=== PATIENT | female | born 1975 | race American Indian/Alaskan Native ===

== ENCOUNTER 2017-03-04 02:38 | Emergency (ER) | payer OTHER ==
[2017-03-04 03:21] LABS: Basophils % (Auto) 1.1 % (0.0-1.8); Eosinophils % (Auto) 0.9 % (0.0-4.3); Hematocrit 39.8 % (30.3-42.9); Hemoglobin 13.3 gm/dl (10.1-14.3); Mean Corpuscular HGB Conc 34 % (30-34); Mean Corpuscular Hemoglobin 34 pg (28-32); Mean Corpuscular Volume 100 fl (79-97); Platelet Count 288 K/mm3 (140-440); Red Blood Count 3.97 M/mm3 (3.65-5.03); Red Cell Distribution Width 18.7 % (13.2-15.2); White Blood Count 5.8 K/mm3 (4.5-11.0)
[2017-03-04 03:36] LABS: Anion Gap 20 mmol/L; Blood Urea Nitrogen 7 mg/dL (7-17); Calcium 8.8 mg/dL (8.4-10.2); Carbon Dioxide 23 mmol/L (22-30); Chloride 98.3 mmol/L (98-107); Glucose 115 mg/dL (65-100); Sodium 138 mmol/L (137-145)
[2017-03-04 04:25] LABS: Bacteria,Urine 3+ /HPF (Negative); Bilirubin,Urine NEG (Negative); Blood,Urine LG (Negative); Ketones,Urine TR mg/dL (Negative); Leukocyte Esterase,Urine NEG (Negative); Mucus,Urine FEW /HPF; Nitrite,Urine NEG (Negative)
[2017-03-04 04:26] LABS: RBC,Urine > 182.0 /HPF (0.0-6.0); WBC,Urine > 182.0 /HPF (0.0-6.0)
[2017-03-04] MEDS ORDERED: TYLENOL PO ONE (09:03)
[2017-03-04] MEDS ORDERED: TYLENOL ONE (11:48)
[2017-03-04] MEDS ORDERED: K-DUR PO ONE (13:01)
[2017-03-04] MEDS ORDERED: ROCEPHIN/NS 1 GM/50 ML 1 GM/50 ML BAG IV ONE (13:01)
--- NOTE | 2017-03-04 13:09 | Emergency Department Report ---
HPI - General Chief Complaint: Headache Time Seen by Provider: 03/04/17 13:00 - HPI HPI: This is a 41 year-old female presents to the emergency department, driven in by her , with complaint of a generalized headache that been going on intermittently over the past 2-3 days. Initially the pain went away on its own but it came back today more intense. She complains of some mild lightheadedness but otherwise denies any vision change, slurred speech , problems with ambulation, numbness, paresthesias or any neurological deficits. She denies any photophobia or phonophobia. She took some ibuprofen for her discomfort prior to presentation. She is a tobacco smoker. She denies any illicit drug use or abuse. Despite the fact that she presents with very elevated blood pressure, the patient denies any history of hypertension. She is not on any medications on a daily basis. Her primary care doctor is a Dr. Rey. ED Past Medical Hx - Past Medical History Previous Medical History?: Yes Hx Hypertension: Yes Additional medical history: Hemorroids - Surgical History Past Surgical History?: No - Social History Smoking Status: Current Every Day Smoker Substance Use Type: Alcohol - Medications Home Medications: Home Medications Medication Instructions Recorded Confirmed Last Taken Type Hydrocodone Bit/Acetaminophen 1 each PO Q4-6H #20 tablet 07/30/13 Unknown Rx [Lortab 5-500 Tablet] ED Review of Systems ROS: Stated complaint: HEADACHE Other details as noted in HPI Comment: All other systems reviewed and negative Constitutional: denies: chills, fever Eyes: denies: eye pain, eye discharge, vision change ENT: denies: ear pain, throat pain Respiratory: denies: cough, shortness of breath, wheezing Cardiovascular: denies: chest pain, palpitations Gastrointestinal: denies: abdominal pain, nausea, diarrhea Genitourinary: denies: urgency, dysuria, discharge Musculoskeletal: denies: back pain, joint swelling, arthralgia Skin: denies: rash, lesions Neurological: headache, other (lightheaded). denies: weakness, numbness, paresthesias Physical Exam - Physical Exam Vital Signs: Vital Signs 03/04/17 03/04/17 03/04/17 02:53 08:52 11:50 Temperature 98.4 F 98.2 F Pulse Rate 85 87 Respiratory 18 18 18 Rate Blood Pressure 150/107 Blood Pressure 190/104 [Right] O2 Sat by Pulse 100 99 Oximetry Physical Exam: GENERAL: The patient is well-developed well-nourished. HEENT: Normocephalic. Atraumatic. Extraocular motions are intact. Patient has moist mucous membranes. Pupils equal reactive to light bilaterally. No nystagmus. NECK: Supple. Trachea is midline. CHEST/LUNGS: Clear to auscultation. There is no respiratory distress noted. HEART/CARDIOVASCULAR: Regular. There is no tachycardia. There is no gallop rub or murmur. ABDOMEN: Abdomen is soft, nontender. Patient has normal bowel sounds. There is no abdominal distention. SKIN: Skin is warm and dry. NEURO: The patient is awake, alert, and oriented. The patient is cooperative. The patient has no focal neurologic deficits. The patient has normal speech. Cranial nerves II through XII grossly intact. No dysmetria. No pronator drift. MUSCULOSKELETAL: There is no tenderness or deformity. There is no limitation range of motion. There is no evidence of acute injury. ED Course Vital Signs 03/04/17 03/04/17 03/04/17 02:53 08:52 11:50 Temperature 98.4 F 98.2 F Pulse Rate 85 87 Respiratory 18 18 18 Rate Blood Pressure 150/107 Blood Pressure 190/104 [Right] O2 Sat by Pulse 100 99 Oximetry ED Medical Decision Making - Lab Data Result diagrams: 03/04/17 03:10 03/04/17 03:10 - Radiology Data Radiology results: report reviewed CT of the head does not show any acute process including no hemorrhage, mass, shift, diffuse edema or skull fracture. - Medical Decision Making 41-year-old female presents with a 2 to three-day history of intermittent headache that became more constant this morning. She denies any neurological deficits and upon evaluation she has no focal, motor or sensory deficits in her cranial nerves are intact. A CT of the head was done secondary to her headache and elevated blood pressure but it did not show any bleed, shift, mass, ischemic changes or any acute process. The rest of her labs are unremarkable and do not show any etiology of the patient's symptoms. She was given a dose of pain medication and upon reevaluation her headache has completely resolved and her blood pressure has gone down to a reasonable level without any antihypertensives medication. Patient is a tobacco smoker which could be part of her hypertensive issues. We discussed smoking cessation. However at this time the patient appears safe for discharge home. She will be given referrals for primary care and information about tobacco abuse, hypertension and headaches. She will return to the ER with any worsening of her symptoms or any acute distress. - Differential Diagnosis tension headache, migraine headache, subarachnoid hemorrhage, hypertensive Critical Care Time: No Critical care attestation.: If time is entered above; I have spent that time in minutes in the direct care of this critically ill patient, excluding procedure time. ED Disposition Clinical Impression: Hypertensive urgency Headache Qualifiers: Headache type: unspecified Headache chronicity pattern: episodic headache Intractability: not intractable Qualified Code(s): R51 - Headache Disposition: DISCHARGED TO HOME OR SELFCARE Is pt being admited?: Yes Condition: Stable Instructions: Hypertension (ED), Acute Headache (ED), How to Stop Smoking (ED) Additional Instructions: Please follow-up with your primary care doctor in the next few days. Please try to stay away from foods that are high in salt and caffeinated products to help with her blood pressure. Please try and quit smoking. Return to the emergency department with any worsening of your symptoms or any acute distress. Referrals: PRIMARY CARE, [Primary Care Provider] - [facility] Time of Disposition: 14:21
--- NOTE | 2017-03-04 13:47 | Cat Scan Report ---
CT HEAD WITHOUT CONTRAST: HISTORY: Headache. Serial contiguous axial images were obtained through the cranium. Intravenous contrast material was not administered. The ventricles are normal in size and appearance. There is no mass effect or midline shift. No areas of abnormally increased or decreased attenuation are seen. No mass lesion is seen. The mastoid air cells and visualized portions of the sinuses are normal. IMPRESSION: Cranial CT scan within normal limits.
[2017-03-04] MEDS ORDERED: NORVASC PO ONE (14:37)
[2017-03-04] MEDS ORDERED: NORCO 5/325 PO ONE (14:38)
[2017-03-04 17:21] VITALS: BP 155/92
== END 2017-03-04 16:27 | disposition home or self-care (01) ==
LOC: ED 02:38
DX: I16.0 Hypertensive urgency (principal); R51 Headache; F17.200 Nicotine dependence, unspecified, uncomplicated
CPT/HCPCS: 36415; 70450; 80048; 81001; 81025; 85025; 96365; 99284; J0696